=== PATIENT | female | born 1970 | race Caucasian/White ===

== ENCOUNTER 2016-11-20 17:42 | Emergency (ER) | payer BC, OTHER ==
[~2016-11-20] VITALS: Ht 177.8 cm; Wt 76.7 kg
[~2016-11-20 17:42] MED LIST: ACHD5005 PO; CETI10TA17; CETI1TAB2; CYCL10TA9 PO; IBUP-792; MULT-608; NITR100C3 PO
--- OUTSIDE RECORDS SUMMARY | 2016-11-20 17:48 | XMS REPORT | Continuity of Care Document ---
Author Author Interface Organization Interface Address Unknown Phone Unavailable Problems Problem Status Onset Date Classification Date Reported Comments Source Medications Medication Details Route Status Patient Instructions Ordering Provider Order Date Source Allergies, Adverse Reactions, Alerts Substance Category Reaction Severity Reaction type Status Date Reported Comments Source Immunizations Immunization Date Given Site Status Last Updated Comments Source Results Order Name Results Value Reference Range Date Interpretation Comments Source Vital Signs Vital Sign Value Date Comments Source Encounters Location Location Details Encounter Type Encounter Number Reason For Visit Attending Provider ADM Date DC Date Status Source [facility] REF [id number] Lab Testing Raffy Prado 05/22/2014 05/22/2014 Active [facility] and [facility] Procedures Procedure Code Date Perfomer Comments Source
--- NOTE | 2016-11-20 18:07 | ED Cough/URI ---
General Chief Complaint: Cough/Cold/Flu Symptoms Stated Complaint: FEVER/SORE THROAT Nursing Triage Note: PT ED W/ FAMILY FOR C/O COUGH, CONGESTION, FEVER, GENERALIZED ACHINESS ET EAR PAIN ONSET YESTERDAY, WORSE TODAY. REPORTS SHE WAS SEEN AT [facility] ET PUT ON ABX BUT DENIES IMPROVEMENT Source: patient Exam Limitations: no limitations History of Present Illness Time seen by provider: 18:06 Initial Comments To ER with a 48-hour history of nonproductive cough, fever up to 102, generalized body aches and ear pain. She was yesterday and put on Augmentin but she denies improvement Timing/Duration: other Severity/Quality: dry cough Associated Symptoms: cough Allergies and Home Medications Allergies Coded Allergies: codeine (Unverified Allergy, Mild, RASH, CONSTIPATION, 11/23/13) Home Medications Cyclobenzaprine Hcl 10 Mg Tablet #14 1 EACH PO Q8HR PRN PRN PRN SPASMS Prescribed by: LAZARO ZIMMERMAN on 11/23/13 1655 D-Methorphan Hb/P-Epd HCl/Bpm 118 Ml Syrup #120 5 ML PO Q6H PRN PRN COUGH Prescribed by: SACHIN HORTON on 11/20/16 1829 Hydrocodone Bit/Acetaminophen 1 Each Tablet #14 1 EACH PO Q4H PRN PRN PAIN Prescribed by: LAZARO ZIMMERMAN on 11/23/13 1655 Ibuprofen 400 Mg Tablet (Reported) Multivitamins 1 Tab Tablet (Reported) P-Ephed Hcl/Cetirizine Hcl 1 Tab Tab (Reported) Constitutional: see HPI chills fever malaise weakness EENTM: ear pain see HPI Respiratory: no symptoms reported Cardiovascular: no symptoms reported Genitourinary: no symptoms reported Musculoskeletal: no symptoms reported Skin: no symptoms reported Psychiatric/Neurological: No Symptoms Reported Past Lqymvjy-Gmtvff-Zmtkil Hx Patient Social History Alcohol Use: Occasionally Uses Recreational Drug Use: No Smoking Status: Never a Smoker Recent Foreign Travel: No Contact w/Someone Who Travel: No Recent Infectious Disease Expo: No Recent Hopitalizations: No Physical Abuse Screen: No Sexual Abuse: No Immunizations Up To Date Tetanus Booster (TDap): Less than 5yrs Date of Influenza Vaccine: Aug 27, 2013 Surgeries HX Surgeries: No Respiratory Hx Respiratory Disorders: No Cardiovascular Hx Cardiac Disorders: Yes Neurological Hx Neurological Disorders: No Reproductive System Hx Reproductive Disorders: No Sexually Transmitted Disease: No HIV/AIDS: No Female Reproductive Disorders: Denies Genitourinary Hx Genitourinary Disorders: No Gastrointestinal Hx Gastrointestinal Disorders: No Musculoskeletal Hx Musculoskeletal Disorders: No Endocrine Hx Endocrine Disorders: No HEENT HX ENT Disorders: No Loss of Vision: Denies Hearing Impairment: Denies Cancer Hx Cancer: No Psychosocial Hx Psychiatric Problems: No Integumentary HX Skin/Integumentary Disorder: No Blood Transfusions Hx Blood Disorders: No Adverse Reaction to a Blood Tr: No Family Medical History Significant Family History: No Pertinent Family Hx Physical Exam Vital Signs Vital Sign - Last 12Hours Capillary Refill : Less Than 3 Seconds General Appearance: WD/WN no apparent distress Eyes: Bilateral Eye EOMI, Bilateral Eye Normal Inspection, Bilateral Eye PERRL HEENT: PERRL/EOMI normal ENT inspection TMs normal pharynx normal Neck: non-tender full range of motion Respiratory: lungs clear normal breath sounds no respiratory distress no accessory muscle use Gastrointestinal: normal bowel sounds non tender soft Extremities: normal range of motion non-tender Neurologic/Psychiatric: alert normal mood/affect oriented x 3 Skin: normal color warm/dry Progress/Results/Core Measures Results/Orders Lab Results Laboratory Tests Test 11/20/16 18:06 Range/Units Basophils # (Auto) 0.0 0.0-0.1 10^3/uL Basophils (%) (Auto) 0 0-10 % Eosinophils # (Auto) 0.1 0.0-0.3 10^3/uL Eosinophils (%) (Auto) 2 0-10 % Hematocrit 35 35-52 % Hemoglobin 11.3 L 11.5-16.0 G/DL Lymphocytes # (Auto) 0.5 L 1.0-4.0 X 10^3 Lymphocytes (%) (Auto) 9 L 12-44 % Mean Corpuscular Hemoglobin 29 25-34 PG Mean Corpuscular Hemoglobin Concent 33 32-36 G/DL Mean Corpuscular Volume 89 80-99 FL Mean Platelet Volume 9.6 7.4-10.4 FL Monocytes # (Auto) 0.9 0.0-1.0 X 10^3 Monocytes (%) (Auto) 15 H 0-12 % Monoscreen NEGATIVE NEGATIVE Neutrophils # (Auto) 4.3 1.8-7.8 X 10^3 Neutrophils (%) (Auto) 74 42-75 % Platelet Count 307 130-400 10^3/uL Red Blood Count 3.90 L 4.35-5.85 10^6/uL Red Cell Distribution Width 13.3 10.0-14.5 % White Blood Count 5.9 4.3-11.0 10^3/uL My Orders Orders-SACHIN HORTON APRN Cbc With Automated Diff (11/20/16 17:53) Monotest (11/20/16 17:53) Influenza A And B Antigens (11/20/16 18:06) Chest Pa/Lat (2 View) (11/20/16 18:06) Vital Signs/I&O Vital Sign - Last 12Hours 11/20/16 11/20/16 17:47 17:47 Temp 102.8 Pulse 106 Resp 20 B/P 110/75 Pulse Ox 98 O2 Delivery Room Air Room Air Blood Pressure Mean: 87 Diagnostic Imaging Diagonstic Imaging: Xray Comments NAME: RAVEN ELKINS [facility] REC#: [id number] PT STATUS: REG ER : 1970 PHYSICIAN: SACHIN HORTON APRN ADMIT DATE: 11/20/16/ER Draft Date of Exam:11/20/16 CHEST PA/LAT (2 VIEW) INDICATION: Cough and fever. Comparison with 11/23/2013. FINDINGS: Examination of the chest in the PA and lateral projections fails to reveal evidence of active parenchymal pathology or pleural effusion. The cardiac silhouette is normal. IMPRESSION: 1. Negative chest. 2. No changes have occurred when compared with previous exam. Dictated on workstation # [id number] Dict: 11/20/161821 Trans: 11/20/161823 [facility] [id number] Interpreted by: EMMA ROWLEY MD Electronically signed by: Departure Impression Impression: Primary Impression: Influenza Disposition: 01 HOME, SELF-CARE Condition: Stable Departure-Patient Inst. Decision time for Depature: 18:28 Referrals: KAMALJIT GARRIDO MD (PCP/Family) Primary Care Physician Patient Instructions: Flu, Adult (DC) Add. Discharge Instructions: 1. Return to ER for any concerns 2. Late home and rest 3. Drink plenty of fluids 4. You may stop the antibiotics All discharge instructions reviewed with patient and/or family. Voiced understanding. Scripts Oseltamivir Phosphate (Tamiflu)75 Mg Cap75 Mg PO BID #10 CAP Prov:SACHIN HORTON APRN 11/20/16 D-Methorphan Hb/P-Epd HCl/Bpm (Bromfed Dm Cough Syrup)118 Ml Syrup5 Ml PO Q6H PRN COUGH #120 ML Prov:SACHIN HORTON APRN 11/20/16 SACHIN HORTON APRN Nov 20, 2016 18:07
[2016-11-20 18:15] LABS: BASOPHILS % (AUTO) 0 % (0-10); EOSINOPHILS # (AUTO) 0.1 10^3/uL (0.0-0.3); EOSINOPHILS % (AUTO) 2 % (0-10); LYMPHOCYTES # (AUTO) 0.5 X 10^3 (1.0-4.0); LYMPHOCYTES % (AUTO) 9 % (12-44); MEAN CORPUSCULAR HEMOGLOBIN 29 PG (25-34); MEAN CORPUSCULAR HGB CONC 33 G/DL (32-36); MEAN CORPUSCULAR VOLUME 89 FL (80-99); MEAN PLATELET VOLUME 9.6 FL (7.4-10.4); MONOCYTES # (AUTO) 0.9 X 10^3 (0.0-1.0); MONOCYTES % (AUTO) 15 % (0-12); NEUTROPHILS # (AUTO) 4.3 X 10^3 (1.8-7.8); NEUTROPHILS % (AUTO) 74 % (42-75); PLATELET COUNT 307 10^3/uL (130-400); RED CELL DISTRIBUTION WIDTH 13.3 % (10.0-14.5); WHITE BLOOD COUNT 5.9 10^3/uL (4.3-11.0)
--- NOTE | 2016-11-20 18:24 | Diagnostic Imaging Report ---
INDICATION: Cough and fever. Comparison with 11/23/2013. FINDINGS: Examination of the chest in the PA and lateral projections fails to reveal evidence of active parenchymal pathology or pleural effusion. The cardiac silhouette is normal. IMPRESSION: 1. Negative chest. 2. No changes have occurred when compared with previous exam. Dictated by: Dictated on workstation # [id number]
[2016-11-20] MEDS ORDERED: D-ME118S33 PO (18:29)
[2016-11-20] MEDS ORDERED: OSLT75C PO (18:31)
[2016-11-20 18:41] VITALS: BP 0/0
[2016-11-20] MEDS ORDERED: ACETAMINOPHEN 500 MG TAB (TYLENOL) PO ONE (18:45)
== END 2016-11-20 18:42 | disposition home or self-care (01) ==
LOC: EDUNIT# 17:42 → ER 17:44
DX: J11.1 Influenza due to unidentified influenza virus with other respiratory manifestations (principal); R50.9 Fever, unspecified
CPT/HCPCS: 36415; 71020; 85025; 86308; 87804

== ENCOUNTER → 2016-12-10 | Outpatient (CLI) | payer BC ==
[~2016-12-10] MED LIST changes: +D-ME118S33 PO; +OSLT75C PO
--- NOTE | 2016-12-10 18:21 | Diagnostic Imaging Report ---
EXAMINATION: Right breast ultrasound. INDICATION: Followup cysts with cyst aspiration, if indicated. COMPARISON: 10/21/16. FINDINGS: There is a simple cyst in the right breast at 9 o'clock zone, 4 cm from the nipple, with no solid component seen. When compared to scanned outside study from 10/21/2016, the cyst appears significantly smaller with resolution of previously seen internal debris or septation. It measures 0.9 x 0.7 x 0.7 cm. At 12 o'clock zone, 4 cm from the nipple, there is a simple cyst, measuring 1.1 x 0.8 x 1.0 cm. At 3 o'clock zone, tiny cysts are seen with no underlying lesion seen. In the retroareolar area, minimal duct ectasis is noted. IMPRESSION: Multiple simple cysts and duct ectasia in the retroareolar region are noted. ACR BI-RADS Category 2: Benign findings. Result letter will be mailed to the patient. Note: At least 10% of breast cancer is not imaged by mammography. Dictated by: Dictated on workstation # [id number]
== END ==
LOC: RAD 12:24
PROVIDERS: ATTEND Surgery
DX: N60.11 Diffuse cystic mastopathy of right breast (principal); N60.41 Mammary duct ectasia of right breast

== ENCOUNTER → 2017-07-23 | Outpatient (CLI) | payer BC | LOC: LAB 11:31 | PROVIDERS: ATTEND Nurse Practitioner | DX: J30.9 Allergic rhinitis, unspecified (principal) | CPT/HCPCS: 36415; 86003 ==

== ENCOUNTER → 2018-04-27 | Outpatient (CLI) | payer BC ==
--- NOTE | 2018-04-27 17:32 | Diagnostic Imaging Report ---
INDICATION: Pain. COMPARISON: 10/04/2015. FINDINGS: Three views of the left hand are obtained. No acute fracture, malalignment, or osseous destructive process is seen. IMPRESSION: Negative left hand. Dictated by: Dictated on workstation # [id number]
== END ==
LOC: RAD 12:01
PROVIDERS: ATTEND Family Medicine
DX: M79.642 Pain in left hand (principal)
CPT/HCPCS: 73130

== ENCOUNTER 2019-03-26 17:23 | Emergency (ER) | payer BC ==
[~2019-03-26] VITALS: Ht 177.8 cm; Wt 81.6 kg
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
--- OUTSIDE RECORDS SUMMARY | 2019-03-26 17:28 | XMS REPORT | Encounter Summary ---
Author Author [facility] Organization [facility] Address Unknown Phone Unavailable Care Team Providers Care Office Cleaner Name Role Phone Shivam Hobbs MD Unavailable Ana Salas Unavailable Griselda Cooley MD PCP Reason for Visit * Reason Comments Memory Loss Follow up Encounter Details Care Team Description Date Type Department Ana Salas APRN-NP [address] [email or web address] [address] [address] Memory changes 03/23/2019 Office Visit The [facility] [address] [address] Social History Date Tobacco Use Types Packs/Day Years Used Never Smoker Smokeless Tobacco: Never Used Sex Assigned at Date Recorded Not on file Industry Job Start Date Occupation Not on file Not on file Not on file Travel End Travel History Travel Start No recent travel history available. documented as of this encounter Last Filed Vital Signs Time Taken Vital Sign Reading 03/23/2019 1:22 PM CDT Blood Pressure 120/68 03/23/2019 1:22 PM CDT Pulse 66 - Temperature - - Respiratory Rate - - Oxygen Saturation - - Inhaled Oxygen - Concentration 03/23/2019 1:22 PM CDT Weight 82.6 kg (182 lb) - Height - 03/23/2019 10:25 AM CDT Body Mass Index 26.11 documented in this encounter Functional Status Date of Assessment Functional Status Response 03/23/2019 Does the patient have a hearing impairment: No 03/23/2019 Does the patient have a visual impairment: Yes 12/22/2017 Does the patient have impaired ambulation: No 12/22/2017 Does the patient have an activity of daily living No (ADL) impairment: 12/22/2017 Does the patient have an instrumental activity of No daily living (IADL) impairment: Date of Assessment Cognitive Status Response 12/22/2017 Does the patient have a cognitive impairment: No documented as of this encounter Patient Instructions * Patient Instructions* Ana Salas APRN-NP - 03/23/2019 2:00 PM CDT Stay active and engaged mentally, physically and socially. Follow up or sooner as needed. documented in this encounter Progress Notes * Ana Salas APRN-NP - 03/23/2019 2:00 PM CDT ShDate of Service: 03/23/2019 Subjective: Lennie Cool is a 48 y.o. female. The history is given by her father. History of TBI about 5 years ago. History of Present Illness Since her visit last January 2018, her memory has been doing very well. The only t nohelia she does still struggle with are word finding and some daytime fatigue. She speaks several languages and often it takes a little longer to pull up the Engl caitlny version of a word. She was able to to go off the Zoloft and feels that she is doing well with her m ood. 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 She covers several [employer] es for her job. If she gets tired she pulls over and takes a little "cat nap." She is very active outside of work with hobbies and takes care of her cats and d ogs. Very involved in [employer] and [employer] vocational counselor. 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 If sh e gets tired she pulls over and takes a little "cat nap." She is in a Research program here at for her allergies, she had an appointmen t today and her lung function was improved. She follows a more restrictive diet, tries to stay away from Gluten, Dairy and H igh Fructose corn syrup. She manages her home, finances. She has a good relationship with her son who goes to [employer]. Review of Systems Constitutional: Positive for fatigue. HENT: Positive for sinus pressure. Eyes: Positive for visual disturbance (being worked up for Glaucoma). Respiratory: Negative. Cardiovascular: Negative. Gastrointestinal: Negative. Genitourinary: Negative. Musculoskeletal: Negative. Neurological: Positive for speech difficulty (some word finding difficulty at ti mes. ). Psychiatric/Behavioral: Negative for confusion, decreased concentration, dysphor ic mood, hallucinations and sleep disturbance. She does not report an awakening headache or dry mouth, just some daytime fatigu e. Objective: ascorbic acid (VITAMIN-C) 500 mg tablet Take 500 mg by mouth daily. azelastine-fluticasone (DYMISTA) 137-50 mcg/spray nasal spray Apply one spra y to each nostril as directed twice daily. budesonide/formoterol (SYMBICORT HFA) 160/4.5 mcg inhalation Inhale two puff s by mouth into the lungs twice daily. cetirizine (ZYRTEC) 10 mg tablet Take 10 mg by mouth daily. electrolyte GUT PEG (NULYTELY, COLYTE, GAVILYTE-N) 420 gram oral solution Ta ke as directed by physicians office. EPINEPHrine (EPIPEN 2-ARCHIE) 1 mg/mL injection pen (2-Pack) Inject 0.3 mg (1 P en) into thigh if needed for anaphylactic reaction. May repeat in 5-15 minutes i f needed. ibuprofen (MOTRIN) 200 mg tablet Take 400 mg by mouth every 6 hours as neede d for Pain. MULTIVITAMIN PO Take 1 Tab by mouth daily. oxymetazoline (AFRIN SINUS (OXYMETAZOLINE)) 0.05 % nasal spray Apply two spr ays to each nostril as directed twice daily for 3 days. Vitals: 03/23/19 1322 BP: 120/68 Pulse: 66 Weight: 82.6 kg (182 lb) Body mass index is 26.11 kg/m. Physical Exam I have personally reviewed the medication list and am making recommendations as listed in the plan below. Lennie manages medication at home for Lennie Cool. The following medications have been identified as potential high risk medication s: none Neurological and Physical Examination: Mental status: She scored 10/10 on MMSE for orientation. Alert, oriented to na me, pleasant, cooperative, well-dressed and groomed. She is in no apparent distr ess. She names and repeats well. She has good insight into her cognitive deficit s. Missed 1/3 on delayed recall. Speech is fluent. Cranial nerves: Pupils are equal and reactive to light. Extraocular movements are full. Tongue and palate are midline. All other cranial nerves intact. Motor: 5/5 strength in the upper and lower extremities with no cogwheel rigidit y. Reflexes: Reflexes are 2 in the arms and at the knees. Coordination: No dysmetria on [id number]-yk-behw testing. Gait: Normal casual gait with normal arm swing, stride length and turns. Neurobehavioral Testing: MMSE: 29/30 LM I : 10 LM II: 11 Clock drawin Verbal Fluency: 20 Trailmaking A: 26 seconds 0 errors Trailmaking B: 54seconds 0 errors Logical Memory Score II: 11 Trailmaking B Errors: 0Testing scores from 02/04/18: Neurobehavioral Evaluation: Mini-Mental Status Examination: 29/30. LM I : 15 LM II: 10 Clock drawin Verbal Fluency: 34 Trailmaking A: 30 seconds 0 errors Trailmaking B: 51 seconds 0 errors Trailmaking B Time (secs): 54 PHQ Depression Scale: PHQ-2 Score: 0 (03/23/2019 1:24 PM) . See below for any recommendations. Dementia Stage: none Assessment and Plan: Problem Memory Changes 47 year old with history or previous TBI here for follow up. Testing remains st able. Some occasional mood changes with stress of job and life. Will increase th e Zoloft to 100 mg/day. Encouraged to stay active and engaged. Discussed mindfu l meditation And stress reduction. Will follow up in 1 year or sooner if needed. Memory changes Since her visit last year she feels she is doing well. Her father reports no con cerns. 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 She mentions some occasional wor d finding difficulty, score down today. She thinks it could also be because she did not always learn words in Thai, she speaks several languages. I recommend ed if she has some concerns we could consider a Speech Therapy evaluation to see if they may have some recommendations to make. She also has some daytime fatigue at times. She does not feel it is sleep relate d. She can be really Busy at work and sometimes just needs to take a brain jayant k. I recommended a home sleep study if it continues to make sure that JONH is not co ntributing. Mood is good, she has been off the Zoloft for some time now and feels she is doi ng well without it. Plan; Discontinue the Zoloft. She has already done this. Stay active and engaged mentally, physically and socially. If the daytime sleepiness continues we can consider a home sleep study. Follow up in 1 year or sooner as needed on a day when Dr. García from neuropsycho logy is in the clinic to do a bit ector cognitive testing. Total Visit time: 40 minutes Counseling time: 35 minutes Regarding: Care planning, medications, test results and disease progression documented in this encounter Plan of Treatment Not on filedocumented as of this encounter Visit Diagnoses Diagnosis Memory changes Memory loss * Assessment & Plan Note - Ana Salas APRN-NP - 03/23/2019 2:28 PM CDT Associated Problem(s): Memory changes Since her visit last year she feels she is doing well. Her father reports no con cerns. 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 She mentions some occasional wor d finding difficulty, score down today. She thinks it could also be because she did not always learn words in Thai, she speaks several languages. I recommend ed if she has some concerns we could consider a Speech Therapy evaluation to see if they may have some recommendations to make. She also has some daytime fatigue at times. She does not feel it is sleep relate d. She can be really Busy at work and sometimes just needs to take a brain jayant k. I recommended a home sleep study if it continues to make sure that JONH is not co ntributing. Mood is good, she has been off the Zoloft for some time now and feels she is doi ng well without it. Plan; Discontinue the Zoloft. She has already done this. Stay active and engaged mentally, physically and socially. If the daytime sleepiness continues we can consider a home sleep study. Follow up in 1 year or sooner as needed on a day when Dr. García from neuropsycho logy is in the clinic to do a bit ector cognitive testing. documented in this encounter
--- OUTSIDE RECORDS SUMMARY | 2019-03-26 17:29 | XMS REPORT | Encounter Summary ---
Author Author [facility] Organization [facility] Address Unknown Phone Unavailable Care Team Providers Care Structural Fitter Name Role Phone Shivam Hobbs MD Unavailable Ana Salas Unavailable Griselda Cooley MD PCP Reason for Visit * Reason Comments Immunotherapy Refill Encounter Details Care Team Description Date Type Department Es Boyce DO [address] [facility] [address] [place] [address] Immunotherapy (Refill) 03/01/2019 Telephone The [facility] [address] [place] [address] Social History Date Tobacco Use Types Packs/Day Years Used Never Smoker Smokeless Tobacco: Never Used Sex Assigned at Date Recorded Not on file Industry Job Start Date Occupation Not on file Not on file Not on file Travel End Travel History Travel Start No recent travel history available. documented as of this encounter Functional Status Date of Assessment Functional Status Response 12/22/2017 Does the patient have a hearing impairment: No 12/22/2017 Does the patient have a visual impairment: Yes 12/22/2017 Does the patient have impaired ambulation: No 12/22/2017 Does the patient have an activity of daily living No (ADL) impairment: 12/22/2017 Does the patient have an instrumental activity of No daily living (IADL) impairment: Date of Assessment Cognitive Status Response 12/22/2017 Does the patient have a cognitive impairment: No documented as of this encounter Miscellaneous Notes * Telephone Encounter - Harriet Lopez LPN - 03/01/2019 9:54 AM CDT Refilled/Mixed vials 1:1. Shot A Exp: 08/20/19 Shot B Exp: 03/01/20 Shot C Exp: 03/01/20 documented in this encounter Plan of Treatment Not on filedocumented as of this encounter Visit Diagnoses Not on filedocumented in this encounter
--- OUTSIDE RECORDS SUMMARY | 2019-03-26 17:29 | XMS REPORT ---
Author Author MELISSA DIMAS [facility] Address [address] [place] [address] Care Team Providers Care Director Peoplesoft Name Role Phone MELISSA DIMAS Unavailable PROBLEMS Unknown Problems ALLERGIES No Information ENCOUNTERS Encounter Location Date Diagnosis [place] [address], [place] [address] Aug, Encounter for immunization Z23 [place] [address] [place] [id number] [place] [phone] Sep, Encounter for immunization Z23 [place] [id number] [place] [phone] Jan, [facility] [address], [place] [address] Jan, [place] [address] [place] [id number] [place] [phone] Nov, [place] [address], [place] [address] Nov, IMMUNIZATIONS Vaccine Route Administration Date Status FLUARIX QUAD (3 AND UP) 2016 IM Intramuscular Aug 19, 2017 Administered SOCIAL HISTORY Never Assessed REASON FOR VISIT Flu shot PLAN OF CARE VITAL SIGNS MEDICATIONS Unknown Medications RESULTS No Results PROCEDURES Procedure Date Ordered Result Body Site FLUARIX QUAD (3 & UP)-GSK-2014Aug 19, 2017 SINGLE IMMUNIZATION ADMIN Aug 19, 2017 INSTRUCTIONS MEDICATIONS ADMINISTERED No Known Medications
--- OUTSIDE RECORDS SUMMARY | 2019-03-26 17:29 | XMS REPORT | Continuity of Care Document ---
Author Organization Unknown Address Unknown Allergies Active Description Code Type Severity Reaction Onset Reported/Identified Relationship to Patient Clinical Status Yes clifton [id number] Drug Allergy Mild RASH, CONSTIPAT 11/23/2013 Medications There is no data. 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 Results Test Result Range Complete blood count (CBC) with automated white blood cell (WBC) differential - 11/20/16 18:06 Blood leukocytes automated count (number/volume) 5.9 10*3/uL 4.3-11.0 Blood erythrocytes automated count (number/volume) 3.90 10*6/uL 4.35-5.85 Venous blood hemoglobin measurement (mass/volume) 11.3 g/dL 11.5-16.0 Blood hematocrit (volume fraction) 35 % 35-52 Automated erythrocyte mean corpuscular volume 89 [foz_us] 80-99 Automated erythrocyte mean corpuscular hemoglobin (mass per erythrocyte) 29 pg 25-34 Automated erythrocyte mean corpuscular hemoglobin concentration measurement (mass/volume) 33 g/dL 32-36 Automated erythrocyte distribution width ratio 13.3 % 10.0- 14.5 Automated blood platelet count (count/volume) 307 10*3/uL 130-400 Automated blood platelet mean volume measurement 9.6 [foz_us] 7.4-10.4 Automated blood neutrophils/100 leukocytes 74 % 42-75 Automated blood lymphocytes/100 leukocytes 9 % 12-44 Blood monocytes/100 leukocytes 15 % 0-12 Automated blood eosinophils/100 leukocytes 2 % 0-10 Automated blood basophils/100 leukocytes 0 % 0-10 Blood neutrophils automated count (number/volume) 4.3 10*3 1.8-7.8 Blood lymphocytes automated count (number/volume) 0.5 10*3 1.0-4.0 Blood monocytes automated count (number/volume) 0.9 10*3 0.0- 1.0 Automated eosinophil count 0.1 10*3/uL 0.0-0.3 Automated blood basophil count (count/volume) 0.0 10*3/uL 0.0-0.1 Serum heterophile antibody titer - 11/20/16 18:06 Serum heterophile antibody titer NEGATIVE NEGATIVE Influenza virus A and B antigen detection - 11/20/16 18:06 CALL POSITIVES (F1 HELP) LORNE FUENTES FLU RESULT POSITIVE FOR INFLUENZA A ANTIGEN, NEG FOR B ANTIGEN, BY DIANA NRSamara Encounters ACCT No. Visit Date/Time Discharge Status Pt. Type Provider Facility Loc./Unit Complaint [id number] 08/19/2017 10:45:00 08/19/2017 23:59:59 CLS Outpatient CHERRI RICHARDS [id number] 06/03/2015 02:28:49 ACT Document Registration [id number] 11/18/2016 09:23:00 11/18/2016 23:59:00 DIS Outpatient Qasim Joyce [id number] 10/21/2016 11:40:00 10/21/2016 23:59:00 DIS Outpatient Griselda Garrido [id number] 04/27/2018 12:01:00 04/27/2018 23:59:59 CLS Outpatient GRISELDA GARRIDO MD [facility] RAD LEFT HAND PAIN [id number] 07/23/2017 11:31:00 07/23/2017 23:59:59 CLS Outpatient JULIANO DALTON APRN [facility] LAB ALLERGIC RHINITIS [id number] 12/10/2016 12:24:00 12/10/2016 23:59:59 CLS Outpatient QASIM JOYCE DO [facility] RAD RIGHT BREAST CYST [id number] 11/20/2016 17:44:00 11/20/2016 18:42:00 DIS Emergency SACHIN HORTON PRESS READER [facility] ER FEVER/SORE THROAT [id number] 10/04/2015 15:36:00 10/04/2015 23:59:59 CLS Outpatient JAYA CARDENAS DO [facility] QUICK [id number] 06/02/2015 15:09:00 06/02/2015 23:59:59 CLS Outpatient SRINATH ESCOTO [facility] QUICK [id number] 04/11/2014 10:43:00 04/11/2014 23:59:59 CLS Outpatient [id number] 11/29/2013 11:25:00 11/29/2013 13:37:00 DIS Emergency [id number] 11/23/2013 13:10:00 11/23/2013 17:50:00 DIS Emergency [id number] 04/07/2013 07:12:00 04/07/2013 23:59:59 CLS Outpatient [id number] 03/23/2013 09:46:00 03/23/2013 23:59:59 CLS Outpatient [id number] 03/13/2013 07:30:00 03/13/2013 23:59:59 CLS Outpatient [id number] 03/26/2019 17:25:00 ACT Emergency SARIKA GRAY, MERRICK Christensen [facility] ER HEADACHE
--- OUTSIDE RECORDS SUMMARY | 2019-03-26 17:29 | XMS REPORT ---
Author MELISSA Karimi [facility] e[employer] Address Unknown Phone Unavailable Care Team Providers Care Agitator Operator Name Role Phone MELISSA DIMAS CP Unavailable Allergies No Known Allergies Problems Problem Type Condition Code Onset Dates Condition Status Assessment Encounter for immunization Z23 Active Medications No Known Medications Procedures Procedure Coding System Code Date SINGLE IMMUNIZATION ADMIN CPT-4 20746 Sep 17, 2016 FLUARIX QUAD P-FREE 3 AND UP .50 2015 CPT-4 97985 Sep 17, 2016 Results No Known Results Immunizations Vaccine Administration Date FLUARIX QUAD P-FREE 3 AND UP .50 2015Sep 17, 2016 Summary Purpose eClinicalWorks Submission
--- OUTSIDE RECORDS SUMMARY | 2019-03-26 17:29 | XMS REPORT | Encounter Summary ---
Author Author [facility] Organization [facility] Address Unknown Phone Unavailable Care Team Providers Care Industrial Gas Servicer Supervisor Name Role Phone Shivam Hobbs MD Unavailable Ana Salas Unavailable Griselda Cooley MD PCP Encounter Details Care Team Description Date Type Department Es Boyce DO [address] [facility] Lvl [address] [place] [address] Rhinoconjunctivitis 03/01/2019 Orders Only [facility] [address] [place] [address] Social History Date Tobacco Use [...] impairment: No documented as of this encounter Progress Notes * Harriet Lopez LPN - 03/01/2019 12:37 PM CDT Billed 48 doses red vial 1:1 AIT refill under "Orders Only" Encounter on 03/01/20 19. documented in this encounter Plan of Treatment Not on filedocumented as of this encounter Visit Diagnoses Diagnosis Rhinoconjunctivitis Chronic rhinitis documented in this encounter
--- OUTSIDE RECORDS SUMMARY | 2019-03-26 17:29 | XMS REPORT | Encounter Summary ---
Author Author [facility] Organization [facility] Address Unknown Phone Unavailable Care Team Providers Care Ammonia Operator Name Role Phone Shivam Hobbs MD Unavailable Ana Salas Unavailable Griselda Cooley MD PCP Reason for Visit * Reason Comments Immunotherapy Vial Shipping Encounter Details Care Team Description Date Type Department Es Boyce DO [address] [facility] Lvl [address] [place] [address] Immunotherapy (Vial Shipping) 03/01/2019 Telephone [facility] [address] [place] [address] Social History Date Tobacco Use [...] Encounter - Harriet Lopez LPN - 03/01/2019 10:18 AM CDT Vials x3 1:1 placed in [employer] envelope along with Allergy Protocol and Allergy Ad ministration Record. Vials sent out 03/01/2019. [employer] Trackin documented in this encounter Plan of Treatment Not on filedocumented as of this encounter Visit Diagnoses Not on filedocumented in this encounter
--- OUTSIDE RECORDS SUMMARY | 2019-03-26 17:29 | XMS REPORT | Encounter Summary ---
Author Author [facility] Organization [facility] Address Unknown Phone Unavailable Care Team Providers Care Correction Lieutenant Name Role Phone Shivam Hobbs MD Unavailable Ana Salas Unavailable Griselda Cooley MD PCP Reason for Visit * Reason Comments Other allergy shot documentation Encounter Details Care Team Description Date Type Department Junior Perdomo Other (allergy shot documentation ) 02/14/2019 Telephone The [address] [address] Social History Date Tobacco Use Types [...] Encounter - Harriet Lopez LPN - 03/01/2019 10:40 AM CDT Vials have been made today 03/01/2019 and will be shipped today as well. * Telephone Encounter - Harriet Lopez LPN - 02/28/2019 2:48 PM CDT I have not received any documentation on this patient regarding Allergy refill r equest. * Telephone Encounter - Gian Valencia LPN - 02/28/2019 1:38 PM CDT Received a voicemail from Clara with Dr. Cooley's office. Clara stated that she sent in a request for new red vials for pt about 2 weeks ago and have not re ceived vials yet. Routing to JASON Lopez to follow up on this due to her previous documentation on 02/14/19 recievng the pt's allergy documentation. Routing to PAUL Silva to see if she was ever notified of allergy shot document ation coming in and to follow up on who is mailing out new vials. * Telephone Encounter - Gregoria Cabrera RN - 02/14/2019 3:57 PM CDT Received allergy shot documentation Document added to image now to be scanned into EMR documented in this encounter Plan of Treatment Not on filedocumented as of this encounter Visit Diagnoses Not on filedocumented in this encounter
--- OUTSIDE RECORDS SUMMARY | 2019-03-26 17:29 | XMS REPORT | Encounter Summary ---
Author Author [facility] Organization [facility] Address Unknown Phone Unavailable Care Team Providers Care Study Lead Name Role Phone Shivam Hobbs MD Unavailable Ana Salas Unavailable Griselda Cooley MD PCP Reason for Visit * Reason Comments Asthma Encounter Details Care Team Description Date Type Department Rohan-Junior Deleon History of asthma (Primary Dx); Sinus pressure; Rhinoconjunctivitis; Moderate persistent asthma without complication 03/23/2019 Office Visit [facility] [address] [place] [address] Social History Date Tobacco Use [...] Signs Time Taken Vital Sign Reading 03/23/2019 10:25 AM CDT Blood Pressure 113/62 03/23/2019 10:25 AM CDT Pulse 61 03/23/2019 10:25 AM CDT Temperature 36.9 C (98.4 F) 03/23/2019 10:25 AM CDT Respiratory Rate 16 03/23/2019 10:25 AM CDT Oxygen Saturation 99% - Inhaled Oxygen - Concentration 03/23/2019 10:25 AM CDT Weight 81.8 kg (180 lb 6.4 oz) 03/23/2019 10:25 AM CDT Height 177.8 cm (5' 10") 03/23/2019 10:25 AM CDT Body Mass Index 25.88 documented in this encounter Functional Status Date [...] this encounter Patient Instructions * Patient Instructions* Junior Perdomo MD - 03/23/2019 10:00 AM CDT Your Allergy shots schedule now that you are on red vial maintenance dose of 0.6 : - We recommend getting maintenance dose of 0.6ml weekly X 4 doses - then every 2 weeks x 4 doses - then every 3 weeks x 4 doses - then every 4 weeks This is the plan as long as you are tolerating your shots. Saline rinses daily then wait 30 minutes before using nasal spray. Start Afrin 2 sprays each nostril BID x 3days and Dymista 1 spray each nostril B ID. You may call us with any questions or concerns. Our nurse can be reached at [phone] during open business hours. If you need to reach the Telephone Order Dispatcher after bu siness hours, you may call the hospital ethylbenzene converter operator at [phone] and ask to randa judd with the fellow on-call. If sinus pressure increases please call. Start Symbicort twice daily for 2 weeks then wean down to once daily. documented in this encounter Progress Notes * Junior Perdomo MD - 03/23/2019 10:00 AM CDT Date of Service: 03/23/2019 Subjective: Lennie Cool is a 48 y.o. female with history of traumatic brain injury , rhinoconjunctivitison AIT, and mod- persistent asthma without complications hereforfollow up. Last seen 11/24/2018. History of Present IllnessInterim history: Patient was doing very well since last visit until last couple of weeks, she dev eloped congestion, and PND with chest tightness. She noticed a sinus pressure wi th headache starting today. She also noted some green discharge in the morning. She has had a history of at most 3 sinus infections per year. All those diagn oses were made clinically but never had any CT of her sinuses completed. Otherw ise, she is doing well on Zyrtec 10mg QHS and Dymista 1 spray each nostril BID. Rhinoconjunctivitis: She usually has itchy eyes, and itchy skin. Moreover, she has runny stuffy and itchy nose. She feels tightness of chest and breathing difficulty. The symptom s started at age 13. There are usually oriole long and worse in the fall. Her usual triggers are outdoor activities. She has had aeroallergens skin testing a t Dr. Bañuelos's office (ENT, [place], [place]) but unable to interpret as no positiv e and negative controls listed. Per their notes she was positive to tree, grass, weed, mold, dust, cat and dog. She was started on allergy immunotherapy in Aug, where she was getting 2 shots every week. She discontinued them in 2016 due to having reactions including tightness in chest which responds to albuterol and redness around the site that subsides later. She also received IT shots for 3 years about 13 years ago which helped her a lot . Aeroallergen skin puncturetesting done on 05/12/2018 revealed she is sensitized to trees, wee ds, grass, dust mite P and cat.Intradermal 05/2018 were positive to mold (alter naria and helminthosporium). She is doing well on Zyrtec 10mg QHS and Dymista 1 spray each nostril BID. She is on red vial 1:1 ( 3 shots) once a week. On 02/14/2019, she received her first maintenance dose of 0.6. She has been tolerating her allergy shots well. She puts ice on the sites for 30mins afterwards which helps. Rhinitis Control Assessment Test #1. During the past week, how often did you have nasal congestion?: 3 (03/23/2019 10:30 AM) #2. During the past week, how often did you sneeze?: 4 (03/23/2019 10:30 AM) #3. During the past week, how often did you have watery eyes?: 4 (03/23/2019 10:3 0 AM) #4. During the past week, to what extent did your nasal or other allergy symptom s interfere with your sleep?: 5 (03/23/2019 10:30 AM) #5. During the past week, how well were your nasal or other allergy symptoms con trolled?: 4 (03/23/2019 10:30 AM) #6. During the past week, how often did you avoid any activities (for example, v isiting a house with a dog or cat, or gardening) because of your nasal or other allergy symptoms?: 5 (03/23/2019 10:30 AM) RCAT Total Score: 25 (03/23/2019 10:30 AM) Moderate persistent asthma: Has been doing well since last visit. Patient denied any ER or urgent care visi ts for asthma. Moreover, she denied using prednisone for asthma since last visi t. She is currently supposed to be on Symbicort 160/4.5 mcg 2 puffs BID with sp acer. However, she has been taking Symbicort 160 2 puffs once daily as she forg ets to take the morning dose. She has not had to use her albuterol since her [facility] visit except for once in the last month. Her usual triggers include Asthma Control Test #1. In the past 4 weeks, how much of the time did your asthma keep you from gett ing as much done at work, school or at home?: 5 (03/23/2019 10:29 AM) #2. During the past 4 weeks, how often have you had shortness of breath?: 4 (03/08 10:29 AM) #3. During the past 4 weeks, how often did your asthma symptoms (wheezing, cough ing, shortness of breath, chest tightness or pain) wake you up at night or earli er than usual in the morning?: 5 (03/23/2019 10:29 AM) #4. During the past 4 weeks, how often have you used your rescue inhaler or nebu lizer medication (such as albuterol)?: 4 (03/23/2019 10:29 AM) #5. How would you rate your asthma control during the past 4 weeks?: 4 ( 9 10:29 AM) Total Score: 22 (03/23/2019 10:29 AM) Review of Systems HENT: Positive for congestion, postnasal drip and sinus pressure. Eyes: Positive for photophobia and discharge. Endocrine: Positive for cold intolerance. Musculoskeletal: Positive for arthralgias. Allergic/Immunologic: Positive for environmental allergies. All other systems reviewed and are negative. Objective: ascorbic acid (VITAMIN-C) 500 mg tablet [...] twice daily for 3 days. Vitals: 03/23/19 1025 BP: 113/62 Pulse: 61 Resp: 16 Temp: 36.9 C (98.4 F) TempSrc: Oral SpO2: 99% Weight: 81.8 kg (180 lb 6.4 oz) Height: 177.8 cm (70") Body mass index is 25.88 kg/m. Physical Exam Constitutional: She is oriented to person, place, and time. She appears well-dev eloped and well-nourished. HENT: Head: Normocephalic. Right Ear: External ear normal. Left Ear: External ear normal. Mouth/Throat: Oropharynx is clear and moist. Mild swollen turbinates bilaterally. Eyes: Pupils are equal, round, and reactive to light. Conjunctivae and EOM are n ormal. Neck: Normal range of motion. Cardiovascular: Normal rate, regular rhythm and normal heart sounds. Pulmonary/Chest: Effort normal and breath sounds normal. She has no wheezes. She has no rales. Abdominal: Soft. Bowel sounds are normal. Musculoskeletal: Normal range of motion. Neurological: She is alert and oriented to person, place, and time. Skin: Skin is warm. Negative dermatographism. Psychiatric: She has a normal mood and affect. Assessment and Plan: Problem Sinus Pressure She noticed a sinus pressure with headache starting today. She also noted some green discharge in the morning. She has had a history of at most 3 sinus infec tions per year. All those diagnoses were made clinically but never had any CT o f her sinuses completed. Plan: -We will observe for now as too early for imaging evaluation or starting antibio tics. -Patient instructed to call us if symptoms worsen or she develops fever in the n ext few days. -May consider CT scan of the sinuses if that occurs. -Start Afrin x3 days. -Daily saline rinses. Rhinoconjunctivitis She usually has itchy eyes, and itchy skin. Moreover, she has runny stuffy and itchy nose. She feels tightness of chest and breathing difficulty. The sympto ms started at age 13. There are usually oriole long and worse in the fall. Her usual triggers are outdoor activities. She has had aeroallergens skin testing at Dr. Bañuelos's office (ENT, [place], [place]) but unable to interpret as no positi ve and negative controls listed. Per their notes she was positive to tree, grass , weed, mold, dust, cat and dog. She was started on allergy immunotherapy in [place] 2016, where she was getting 2 shots every week. She discontinued them in October 2017 due to having reactions including tightness in chest which respond s to albuterol and redness around the site that subsides later. She also receive d IT shots for 3 years about 13 years ago which helped her a lot . Aeroallergen skin puncturetesting done on 05/12/2018 revealed she is sensitized to trees, we eds, grass, dust mite P and cat.Intradermal 05/2018 were positive to mold (alte rnaria and helminthosporium). She is doing well on Zyrtec 10mg QHS and Dymista 1 spray each nostril BID. She is on red vial 1:1 ( 3 shots) once a week. On , she received her first maintenance dose of 0.6. She has been toleratin g her allergy shots well. She puts ice [...] in morning in addition to her nightly d ose. She will place ice on the area for 30mins. Patient takes Epi pen (unexpired ) with her to every shot visit. - Continue Dymista 1 spray each nostril BID. - Saline rinses daily now while she is having congestion and Post nasal drip. I f her symptoms worsen, patient will call us to go over her it. May prescribe Aug mentin if need be. - Re-start Zaditor eye drops, one drop in each eye twice a day if needed. Moderate Persistent Asthma Without Complication Well controlled. Her triggers include URI, exertion, cold air exposure. On Symbicort 160/4.5 mcg 2 puffs BID since January 2018. Tried Qvar 80 mcg 2 puffs BID,with little improve ment. Last time using Albuterol was a month [...] goal is to stepdown her therapy if spi rometry is normal now that she is on AIT. Plan: -Continue Symbicort 160/4.5 mcg 2 puffs BID with spacer for the next 2 weeks whi le she is having congestion then patient may go back to Symbicort 160/4.5mcg 2 p uffs once daily. -Continue albuterol 2 puffs every 4 hours as needed for cough, shortness of jayant th and or wheezing. - Spirometry today was within normal limits. - May consider stepping down therapy at next visit if spirometry is normal and p atient's symptoms are well controlled. Especially since starting AIT. Follow-up in 6 months. Patient seen and discussed with Dr. Griffith and plan of care formulated. Junior Perdomo MD Allergy and Clinical Immunology Fellow documented in this encounter Plan of Treatment Not on filedocumented as of this encounter Procedures Comments Procedure Name Priority Date/Time Associated Diagnosis SPIROMETRY Routine 03/23/2019 History of asthma 11:26 AM CDT documented in this encounter Results * SPIROMETRY (03/23/2019 11:26 AM CDT) FVC-Pre 3.52 L [facility] FVC-%Pred-pre 81 % [facility] FEV1-Pre 2.93 L [facility] FEV1-%Pred-Pre 85 % [facility] FEV1/FVC-Pre 83 % [facility] [id number] 70 % [facility] [id number] 3.51 L/sec [facility] [id number]-%Pred-P 110 % [facility] re Narrative Performed At Performing Organization Address City/State/Zipcode Phone Number [facility] [address] [place] [address] documented in this encounter Visit Diagnoses Diagnosis History of asthma - Primary Personal history of other diseases of respiratory system Sinus pressure Other diseases of nasal cavity and sinuses Rhinoconjunctivitis Chronic rhinitis Moderate persistent asthma without complication Unspecified asthma documented in this encounter
[2019-03-26] MEDS ORDERED: ACET/BUTAL/CAFF (FIORICET) TAB PO PRN (17:45)
--- NOTE | 2019-03-26 17:48 | ED Headache ---
General Chief Complaint: Head/Cervical Problems Stated Complaint: HEADACHE Source: patient Exam Limitations: no limitations History of Present Illness Date Seen by Provider: March 26, 2019 Time Seen by Provider: 17:45 Initial Comments To ER with left-sided headache. She has a history of headaches intermittently but typically they're sinus type headaches and/or periorbital in location alleviated by decongestants. She denies any change in nasal congestion, rhinorr hea fevers or chills or vision. Starting this morning she had a dull ache on the left side of her head which is an unusual location for her headaches. This pain then spread behind the ear and down below the left ear. The infra-auricular and supraclavicular regions just adjacent to the ear are tender to palpation but normal in appearance. No injuries. The pain has become more intense, it is constant since this morning and sharp in nature. She does have nausea and photophobia. She denies any weakness on one side or another or other symptoms. Timing/Duration: other (headache) Severity/Quality: moderate Location: temporal Prior Headaches/Recent Trauma: occasional headaches Modifying Factors: worse with exposure to light Associated Symptoms: No confusion; facial pain; No fever/chills, No flushing; nausea/vomiting Allergies and Home Medications Allergies Coded Allergies: codeine (Unverified Allergy, Mild, RASH, CONSTIPATION, 11/23/13) Patient Home Medication List Home Medication List Reviewed: Yes Review of Systems Review of Systems Constitutional: see HPI Eyes: No Symptoms Reported Ears, Nose, Mouth, Throat: no symptoms reported Respiratory: no symptoms reported Cardiovascular: no symptoms reported Genitourinary: no symptoms reported Musculoskeletal: no symptoms reported Skin: no symptoms reported Psychiatric/Neurological: No Symptoms Reported Past Jdmiewy-Qxxqin-Vemdtp Hx Patient Social History Alcohol Use: Denies Use Recreational Drug Use: No Smoking Status: Never a Smoker Recent Foreign Travel: No Contact w/Someone Who Travel: No Recent Hopitalizations: No Physical Abuse: No Sexual Abuse: No Mistreated: No Fear: No Immunizations Up To Date Tetanus Booster (TDap): Less than 5yrs Date of Influenza Vaccine: Aug 27, 2013 Seasonal Allergies Seasonal Allergies: Yes Past Medical History Surgeries: No Respiratory: No Cardiac: No Neurological: No Reproductive Disorders: No Female Reproductive Disorders: Denies Sexually Transmitted Disease: No HIV/AIDS: No Genitourinary: No 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 oz. 76.729028kk; BMI Method:Stated General Appearance: WD/WN, no apparent distress HEENT: PERRL/EOMI, normal ENT inspection, TMs normal, other (tender to palpation just above and below the left ear for the skin appearance is normal without swelling or lesion.) Neck: non-tender, full range of motion; No lymphadenopathy (R), No lymphadenopathy (L) Respiratory: normal breath sounds, no respiratory distress, no accessory muscle use Extremities: normal range of motion, non-tender Psychiatric: alert, oriented x 3 Crainal Nerves: normal hearing, normal speech, PERRL Coordination/Gait: normal finger to nose, normal gait Motor/Sensory: no motor deficit, no sensory deficit, no pronator drift Skin: normal color, warm/dry Progress/Results/Core Measures Results/Orders My Orders Orders - SACHIN HORTON APRN Butalbital/Apap/Caffeine Tab (Fioricet T (03/26/19 17:45) Ct Head Wo (03/26/19 17:44) Vital Signs/I&O 03/26/19 17:37 Temp 98.2 Pulse 76 Resp 18 B/P (MAP) 132/75 (94) Pulse Ox 98 Departure Communication (Admissions) 1836-currently her headache is 4 out of 10, was 8 out of 10 on arrival. This is after one Fioricet tablet. Impression Primary Impression: Headache Qualified Codes: R51 - Headache Disposition: 01 HOME, SELF-CARE Condition: Stable Departure-Patient Inst. Decision time for Depature: 18:36 Referrals: KAMALJIT GARRIDO MD (PCP/Family) Primary Care Physician Patient Instructions: Headache, Adult (DC) Add. Discharge Instructions: 1. Return to ER for any worsening symptoms, uncontrollable nausea or worsening headache. All discharge instructions reviewed with patient and/or family. Voiced understanding. Scripts Butalb/Acetaminophen/Caffeine (Ljizop-Xjuhamlc-Rgqq [id number]) 1 Each Capsule 1 EACH PO Q4H PRN for HEADACHE, #10 CAP Prov: SACHIN HORTON APRN 03/26/19 SACHIN HORTON APRN March 26, 2019 17:48
--- NOTE | 2019-03-26 18:20 | Diagnostic Imaging Report ---
PROCEDURE: CT head without contrast. TECHNIQUE: Multiple contiguous axial images were obtained through the brain without the use of intravenous contrast. Auto Exposure Controls were utilized during the CT exam to meet ALARA standards for radiation dose reduction. INDICATION: Headache. COMPARISON: Prior examination from 11/29/2013. FINDINGS: The ventricles and sulci are within normal limits. There is no hydrocephalus or cerebral edema. There is no midline shift or mass effect. There is no intracranial mass, hemorrhage, or extra-axial fluid collection. The visualized paranasal sinuses and mastoid air cells are clear. There are no regional areas of decreased attenuation appreciated to suggest an acute CVA. IMPRESSION: No acute intracranial abnormality. Dictated by: Dictated on workstation # [id number]
[2019-03-26] MEDS ORDERED: BUTA1CAP41 PO (18:37)
[2019-03-26 18:45] VITALS: BP 123/70
== END 2019-03-26 18:45 | disposition home or self-care (01) ==
LOC: EDUNIT# 17:23 → ER 17:25
DX: R51 Headache (principal); Z88.5 Allergy status to narcotic agent
CPT/HCPCS: 70450

== ENCOUNTER → 2019-06-26 | Outpatient (CLI) | payer BC ==
[~2019-06-26] MED LIST changes: +BUTA1CAP41 PO
--- NOTE | 2019-06-26 11:11 | Diagnostic Imaging Report ---
INDICATION: Routine screening. COMPARISON: 11/18/2016 and 03/23/2013. TECHNIQUE: 2D and 3D bilateral screening mammography was performed with CAD. FINDINGS: Both breasts remain heterogeneously dense, limiting the sensitivity of mammography. Scattered benign calcifications are noted bilaterally. A stable benign nodule in the axillary tail on the left is seen. No new mass or malignant appearing microcalcifications are identified. The axillae are unremarkable. IMPRESSION: No mammographic features suspicious for malignancy are identified. ACR BI-RADS Category 2: Benign findings. Result letter will be mailed to the patient. Note: At least 10% of breast cancer is not imaged by mammography. Dictated by: Dictated on workstation # [id number]
--- NOTE | 2019-06-26 11:26 | Diagnostic Imaging Report ---
PROCEDURE: US Non-ob pelvis comp/trans. TECHNIQUE: Multiple Real-time grayscale images were obtained of the pelvis in various projections endovaginally. Transabdominal imaging was also performed. INDICATION: Uterine enlargement. Patient has family history of fibroids. FINDINGS: The uterus measures 4.2 x 4.6 x 5.9 cm. The endometrium is 3 mm in thickness. No myometrial mass is detected. The ovaries are not visualized due to overlying bowel gas. No adnexal mass or free fluid is seen. IMPRESSION: Unremarkable pelvic ultrasound. Dictated by: Dictated on workstation # [id number]
== END ==
LOC: RAD 09:22
PROVIDERS: ATTEND Obstetrics & Gynecology
DX: Z12.31 Encounter for screening mammogram for malignant neoplasm of breast (principal); N85.2 Hypertrophy of uterus; N92.1 Excessive and frequent menstruation with irregular cycle; Z84.89 Family history of other specified conditions
CPT/HCPCS: 76830; 76856; 77067

== ENCOUNTER → 2021-07-25 | Outpatient (CLI) | payer BC | LOC: LAB 08:00 | PROVIDERS: ATTEND Family Medicine | DX: D72.829 Elevated white blood cell count, unspecified (principal); M19.90 Unspecified osteoarthritis, unspecified site | CPT/HCPCS: 36415; 80061; 84443 ==

== ENCOUNTER 2021-09-26 07:20 | Outpatient (RCR) | payer BC ==
[2021-07-25 08:29] LABS: BASOPHILS % (AUTO) 0 % (0-10); EOSINOPHILS # (AUTO) 0.1 10^3/uL (0.0-0.3); EOSINOPHILS % (AUTO) 3 % (0-10); HEMATOCRIT 39 % (35-52); HEMOGLOBIN 12.3 g/dL (11.5-16.0); LYMPHOCYTES # (AUTO) 1.3 10^3/uL (1.0-4.0); LYMPHOCYTES % (AUTO) 25 % (12-44); MEAN CORPUSCULAR HEMOGLOBIN 29 pg (25-34); MEAN CORPUSCULAR HGB CONC 32 g/dL (32-36); MEAN CORPUSCULAR VOLUME 92 fL (80-99); MEAN PLATELET VOLUME 8.9 fL (9.0-12.2); MONOCYTES # (AUTO) 0.5 10^3/uL (0.0-1.0); MONOCYTES % (AUTO) 9 % (0-12); NEUTROPHILS # (AUTO) 3.3 10^3/uL (1.8-7.8); NEUTROPHILS % (AUTO) 63 % (42-75); PLATELET COUNT 337 10^3/uL (130-400); WHITE BLOOD COUNT 5.3 10^3/uL (4.3-11.0)
[2021-07-25 08:41] LABS: ALBUMIN 3.8 GM/DL (3.2-4.5)
[2021-07-25 08:42] LABS: CALCIUM 9.1 MG/DL (8.5-10.1)
[2021-07-25 08:43] LABS: TOTAL PROTEIN 6.5 GM/DL (6.4-8.2)
[2021-07-25 08:45] LABS: BILIRUBIN,TOTAL 0.5 MG/DL (0.1-1.0)
[2021-07-25 08:47] LABS: CREATININE SERUM 0.8 MG/DL (0.60-1.30)
[2021-08-29 08:07] LABS: BASOPHILS % (AUTO) 1 % (0-10); EOSINOPHILS # (AUTO) 0.1 10^3/uL (0.0-0.3); EOSINOPHILS % (AUTO) 2 % (0-10); HEMATOCRIT 38 % (35-52); HEMOGLOBIN 12.7 g/dL (11.5-16.0); LYMPHOCYTES # (AUTO) 1.4 10^3/uL (1.0-4.0); LYMPHOCYTES % (AUTO) 24 % (12-44); MEAN CORPUSCULAR HEMOGLOBIN 30 pg (25-34); MEAN CORPUSCULAR HGB CONC 33 g/dL (32-36); MEAN CORPUSCULAR VOLUME 91 fL (80-99); MEAN PLATELET VOLUME 9.8 fL (9.0-12.2); MONOCYTES # (AUTO) 0.6 10^3/uL (0.0-1.0); MONOCYTES % (AUTO) 10 % (0-12); NEUTROPHILS # (AUTO) 3.7 10^3/uL (1.8-7.8); NEUTROPHILS % (AUTO) 63 % (42-75); PLATELET COUNT 367 10^3/uL (130-400); WHITE BLOOD COUNT 5.9 10^3/uL (4.3-11.0)
[2021-08-29 08:29] LABS: ALBUMIN 4.1 GM/DL (3.2-4.5); BILIRUBIN,TOTAL 0.6 MG/DL (0.1-1.0); CALCIUM 9.6 MG/DL (8.5-10.1); CREATININE SERUM 0.83 MG/DL (0.60-1.30); POTASSIUM 3.9 MMOL/L (3.6-5.0); TOTAL PROTEIN 6.9 GM/DL (6.4-8.2)
[2021-09-26 07:29] LABS: BASOPHILS % (AUTO) 1 % (0-10); EOSINOPHILS # (AUTO) 0.1 10^3/uL (0.0-0.3); EOSINOPHILS % (AUTO) 2 % (0-10); HEMATOCRIT 38 % (35-52); HEMOGLOBIN 12.5 g/dL (11.5-16.0); LYMPHOCYTES # (AUTO) 1.3 10^3/uL (1.0-4.0); LYMPHOCYTES % (AUTO) 23 % (12-44); MEAN CORPUSCULAR HEMOGLOBIN 31 pg (25-34); MEAN CORPUSCULAR HGB CONC 33 g/dL (32-36); MEAN CORPUSCULAR VOLUME 94 fL (80-99); MEAN PLATELET VOLUME 9.5 fL (9.0-12.2); MONOCYTES # (AUTO) 0.6 10^3/uL (0.0-1.0); MONOCYTES % (AUTO) 11 % (0-12); NEUTROPHILS # (AUTO) 3.6 10^3/uL (1.8-7.8); NEUTROPHILS % (AUTO) 64 % (42-75); PLATELET COUNT 363 10^3/uL (130-400); WHITE BLOOD COUNT 5.6 10^3/uL (4.3-11.0)
[2021-09-26 07:58] LABS: ALBUMIN 3.9 GM/DL (3.2-4.5); BILIRUBIN,TOTAL 0.7 MG/DL (0.1-1.0); CALCIUM 8.9 MG/DL (8.5-10.1); CREATININE SERUM 0.76 MG/DL (0.60-1.30); POTASSIUM 3.7 MMOL/L (3.6-5.0); TOTAL PROTEIN 6.8 GM/DL (6.4-8.2)
== END 2021-10-23 | disposition home or self-care (01) ==
LOC: LAB 07:20
PROVIDERS: ATTEND Internal Medicine Rheumatology
DX: Z51.81 Encounter for therapeutic drug level monitoring (principal); Z79.899 Other long term (current) drug therapy
CPT/HCPCS: 36415; 80053; 85025

== ENCOUNTER → 2021-11-03 | Outpatient (CLI) | payer BC ==
[2021-11-03 07:57] LABS: BASOPHILS % (AUTO) 1 % (0-10); EOSINOPHILS # (AUTO) 0.3 10^3/uL (0.0-0.3); EOSINOPHILS % (AUTO) 4 % (0-10); HEMATOCRIT 41 % (35-52); HEMOGLOBIN 13.3 g/dL (11.5-16.0); LYMPHOCYTES # (AUTO) 1.5 10^3/uL (1.0-4.0); LYMPHOCYTES % (AUTO) 23 % (12-44); MEAN CORPUSCULAR HEMOGLOBIN 31 pg (25-34); MEAN CORPUSCULAR HGB CONC 32 g/dL (32-36); MEAN CORPUSCULAR VOLUME 94 fL (80-99); MEAN PLATELET VOLUME 9.4 fL (9.0-12.2); MONOCYTES # (AUTO) 0.6 10^3/uL (0.0-1.0); MONOCYTES % (AUTO) 10 % (0-12); NEUTROPHILS % (AUTO) 62 % (42-75); PLATELET COUNT 354 10^3/uL (130-400); WHITE BLOOD COUNT 6.4 10^3/uL (4.3-11.0)
[2021-11-03 08:14] LABS: ALBUMIN 4.1 GM/DL (3.2-4.5); BILIRUBIN,TOTAL 0.3 MG/DL (0.1-1.0); CALCIUM 9.3 MG/DL (8.5-10.1); CREATININE SERUM 0.81 MG/DL (0.60-1.30); POTASSIUM 4.3 MMOL/L (3.6-5.0); TOTAL PROTEIN 7.2 GM/DL (6.4-8.2)
== END ==
LOC: LAB 07:25
PROVIDERS: ATTEND Internal Medicine Rheumatology
DX: Z79.899 Other long term (current) drug therapy (principal)
CPT/HCPCS: 36415; 80053; 85025

== ENCOUNTER → 2021-12-08 | Outpatient (RCR) | payer BC ==
[2021-12-08 08:37] LABS: BASOPHILS # (AUTO) 0.1 10^3/uL (0.0-0.1); BASOPHILS % (AUTO) 1 % (0-10); EOSINOPHILS # (AUTO) 0.1 10^3/uL (0.0-0.3); EOSINOPHILS % (AUTO) 2 % (0-10); HEMATOCRIT 39 % (35-52); HEMOGLOBIN 12.7 g/dL (11.5-16.0); LYMPHOCYTES # (AUTO) 1.4 10^3/uL (1.0-4.0); LYMPHOCYTES % (AUTO) 27 % (12-44); MEAN CORPUSCULAR HEMOGLOBIN 30 pg (25-34); MEAN CORPUSCULAR HGB CONC 32 g/dL (32-36); MEAN CORPUSCULAR VOLUME 92 fL (80-99); MEAN PLATELET VOLUME 9.5 fL (9.0-12.2); MONOCYTES # (AUTO) 0.5 10^3/uL (0.0-1.0); MONOCYTES % (AUTO) 10 % (0-12); NEUTROPHILS # (AUTO) 3.1 10^3/uL (1.8-7.8); NEUTROPHILS % (AUTO) 59 % (42-75); PLATELET COUNT 394 10^3/uL (130-400); WHITE BLOOD COUNT 5.3 10^3/uL (4.3-11.0)
[2021-12-08 08:54] LABS: ALBUMIN 4.1 GM/DL (3.2-4.5); BILIRUBIN,TOTAL 0.9 MG/DL (0.1-1.0); CALCIUM 9.2 MG/DL (8.5-10.1); CREATININE SERUM 0.77 MG/DL (0.60-1.30); POTASSIUM 3.8 MMOL/L (3.6-5.0); TOTAL PROTEIN 7.2 GM/DL (6.4-8.2)
== END | disposition home or self-care (01) ==
LOC: LAB 08:06
PROVIDERS: ATTEND Internal Medicine Rheumatology
DX: Z51.81 Encounter for therapeutic drug level monitoring (principal); Z79.899 Other long term (current) drug therapy
CPT/HCPCS: 36415; 80053; 85025

== ENCOUNTER → 2022-01-08 | Outpatient (CLI) | payer BC ==
[2022-01-08 08:19] LABS: BASOPHILS % (AUTO) 1 % (0-10); EOSINOPHILS # (AUTO) 0.1 10^3/uL (0.0-0.3); EOSINOPHILS % (AUTO) 2 % (0-10); HEMATOCRIT 39 % (35-52); HEMOGLOBIN 12.6 g/dL (11.5-16.0); LYMPHOCYTES # (AUTO) 1.2 10^3/uL (1.0-4.0); LYMPHOCYTES % (AUTO) 25 % (12-44); MEAN CORPUSCULAR HEMOGLOBIN 30 pg (25-34); MEAN CORPUSCULAR HGB CONC 33 g/dL (32-36); MEAN CORPUSCULAR VOLUME 93 fL (80-99); MEAN PLATELET VOLUME 9.5 fL (9.0-12.2); MONOCYTES # (AUTO) 0.4 10^3/uL (0.0-1.0); MONOCYTES % (AUTO) 7 % (0-12); NEUTROPHILS # (AUTO) 3.3 10^3/uL (1.8-7.8); NEUTROPHILS % (AUTO) 65 % (42-75); PLATELET COUNT 392 10^3/uL (130-400); WHITE BLOOD COUNT 5.1 10^3/uL (4.3-11.0)
[2022-01-08 08:35] LABS: ALBUMIN 4.1 GM/DL (3.2-4.5); BILIRUBIN,TOTAL 0.8 MG/DL (0.1-1.0); CALCIUM 9.2 MG/DL (8.5-10.1); CREATININE SERUM 0.79 MG/DL (0.60-1.30); POTASSIUM 3.8 MMOL/L (3.6-5.0); TOTAL PROTEIN 6.9 GM/DL (6.4-8.2)
== END ==
LOC: LAB 07:49
PROVIDERS: ATTEND Internal Medicine Rheumatology
DX: Z79.899 Other long term (current) drug therapy (principal)
CPT/HCPCS: 36415; 80053; 85025

== ENCOUNTER → 2022-01-19 | Outpatient (CLI) | payer BC ==
[2022-01-19 09:28] LABS: ALBUMIN 4.2 GM/DL (3.2-4.5); BILIRUBIN,DIRECT 0.3 MG/DL (0.0-0.3); BILIRUBIN,INDIRECT 0.4 MG/DL; BILIRUBIN,TOTAL 0.7 MG/DL (0.1-1.0); TOTAL PROTEIN 6.8 GM/DL (6.4-8.2)
== END ==
LOC: LAB 08:47
PROVIDERS: ATTEND Internal Medicine Rheumatology
DX: R94.5 Abnormal results of liver function studies (principal)
CPT/HCPCS: 36415; 80076

== ENCOUNTER → 2022-02-20 | Outpatient (CLI) | payer BC ==
[2022-02-20 08:48] LABS: ALBUMIN 4.3 GM/DL (3.2-4.5); BILIRUBIN,DIRECT 0.2 MG/DL (0.0-0.3); BILIRUBIN,INDIRECT 0.5 MG/DL; BILIRUBIN,TOTAL 0.7 MG/DL (0.1-1.0); TOTAL PROTEIN 7.2 GM/DL (6.4-8.2)
== END ==
LOC: LAB 08:06
PROVIDERS: ATTEND Internal Medicine Rheumatology
DX: R79.89 Other specified abnormal findings of blood chemistry (principal)
CPT/HCPCS: 36415; 80076

== ENCOUNTER → 2022-03-30 | Outpatient (CLI) | payer BC ==
[2022-03-30 07:15] LABS: BASOPHILS % (AUTO) 1 % (0-10); EOSINOPHILS # (AUTO) 0.2 10^3/uL (0.0-0.3); EOSINOPHILS % (AUTO) 3 % (0-10); HEMATOCRIT 38 % (35-52); HEMOGLOBIN 12.5 g/dL (11.5-16.0); LYMPHOCYTES # (AUTO) 1.6 10^3/uL (1.0-4.0); LYMPHOCYTES % (AUTO) 24 % (12-44); MEAN CORPUSCULAR HEMOGLOBIN 31 pg (25-34); MEAN CORPUSCULAR HGB CONC 33 g/dL (32-36); MEAN CORPUSCULAR VOLUME 92 fL (80-99); MEAN PLATELET VOLUME 9.5 fL (9.0-12.2); MONOCYTES # (AUTO) 0.7 10^3/uL (0.0-1.0); MONOCYTES % (AUTO) 11 % (0-12); NEUTROPHILS # (AUTO) 4.2 10^3/uL (1.8-7.8); NEUTROPHILS % (AUTO) 62 % (42-75); PLATELET COUNT 370 10^3/uL (130-400); WHITE BLOOD COUNT 6.7 10^3/uL (4.3-11.0)
[2022-03-30 07:24] LABS: BILIRUBIN,TOTAL 0.7 MG/DL (0.1-1.0); CALCIUM 9.2 MG/DL (8.5-10.1); CREATININE SERUM 0.79 MG/DL (0.60-1.30); POTASSIUM 3.7 MMOL/L (3.6-5.0); TOTAL PROTEIN 6.7 GM/DL (6.4-8.2)
== END ==
LOC: LAB 06:44
PROVIDERS: ATTEND Internal Medicine Rheumatology
DX: Z79.899 Other long term (current) drug therapy (principal)
CPT/HCPCS: 36415; 80053; 85025

== ENCOUNTER → 2022-05-01 | Outpatient (CLI) | payer BC ==
[2022-05-01 07:02] LABS: BASOPHILS # (AUTO) 0.1 10^3/uL (0.0-0.1); BASOPHILS % (AUTO) 1 % (0-10); EOSINOPHILS # (AUTO) 0.1 10^3/uL (0.0-0.3); EOSINOPHILS % (AUTO) 3 % (0-10); HEMATOCRIT 41 % (35-52); HEMOGLOBIN 13.1 g/dL (11.5-16.0); LYMPHOCYTES # (AUTO) 1.5 10^3/uL (1.0-4.0); LYMPHOCYTES % (AUTO) 28 % (12-44); MEAN CORPUSCULAR HEMOGLOBIN 31 pg (25-34); MEAN CORPUSCULAR HGB CONC 32 g/dL (32-36); MEAN CORPUSCULAR VOLUME 94 fL (80-99); MEAN PLATELET VOLUME 9.4 fL (9.0-12.2); MONOCYTES # (AUTO) 0.8 10^3/uL (0.0-1.0); MONOCYTES % (AUTO) 14 % (0-12); NEUTROPHILS % (AUTO) 55 % (42-75); PLATELET COUNT 366 10^3/uL (130-400); WHITE BLOOD COUNT 5.5 10^3/uL (4.3-11.0)
[2022-05-01 07:10] LABS: ALBUMIN 4.1 GM/DL (3.2-4.5); POTASSIUM 4.2 MMOL/L (3.6-5.0)
[2022-05-01 07:11] LABS: CALCIUM 9.3 MG/DL (8.5-10.1)
[2022-05-01 07:12] LABS: TOTAL PROTEIN 7.1 GM/DL (6.4-8.2)
[2022-05-01 07:14] LABS: BILIRUBIN,TOTAL 0.6 MG/DL (0.1-1.0)
[2022-05-01 07:16] LABS: CREATININE SERUM 0.8 MG/DL (0.60-1.30)
[2022-05-01 07:17] LABS: BILIRUBIN,DIRECT 0.2 MG/DL (0.0-0.3); BILIRUBIN,INDIRECT 0.4 MG/DL
== END ==
LOC: LAB 06:38
PROVIDERS: ATTEND Internal Medicine Rheumatology
DX: R79.89 Other specified abnormal findings of blood chemistry (principal); Z79.899 Other long term (current) drug therapy
CPT/HCPCS: 36415; 80053; 80076; 85025

== ENCOUNTER → 2022-11-13 | Outpatient (CLI) | payer BC ==
--- NOTE | 2022-11-13 12:05 | Diagnostic Imaging Report ---
INDICATION: Routine screening. Comparison is made prior mammogram of 06/26/2019 and 11/18/2016. 2-D and 3-D bilateral screening mammography was performed with CAD Both breasts are heterogeneously dense, limiting the sensitivity of mammography. The parenchymal pattern is stable. There are benign calcifications bilaterally. Benign nodule in the upper left breast is stable. No new mass or malignant-appearing microcalcifications are seen. Axillae are unremarkable. IMPRESSION: No mammographic features suspicious for malignancy are identified. ACR BI-RADS Category 2: Benign findings. Result letter will be mailed to the patient. Note: At least 10% of breast cancer is not imaged by mammography. BI-RADS Category 2 Dictated by: Dictated on workstation # [id number]
== END ==
LOC: RAD 07:35
PROVIDERS: ATTEND Surgery
DX: Z12.31 Encounter for screening mammogram for malignant neoplasm of breast (principal)
CPT/HCPCS: 77063; 77067

== ENCOUNTER 2023-02-03 05:33 | Outpatient (CLI) | payer BC ==
[~2023-02-03] VITALS: Ht 177.8 cm; Wt 84.6 kg
[2023-02-03] MEDS ORDERED: AZEL23SP2 NS (09:33)
[2023-02-03] MEDS ORDERED: RT-ALBUINH INH (09:33)
[2023-02-03] MEDS ORDERED: ASHW500C PO (09:33)
[2023-02-03] MEDS ORDERED: FOLI1TAB33 PO (09:33)
[2023-02-03] MEDS ORDERED: ASCO500T17 PO (09:33)
[2023-02-03] MEDS ORDERED: BUDE10.26 IH (09:33)
[2023-02-03] MEDS ORDERED: CETI10TA17 PO (09:33)
[2023-02-03] MEDS ORDERED: BUDE10.2 IH (09:33)
[2023-02-03] MEDS ORDERED: METH2.5T PO (09:33)
[2023-02-03] MEDS ORDERED: MULT-593 PO (09:33)
== END 2023-02-03 09:37 | disposition home or self-care (01) ==
LOC: PREOP 05:33
PROVIDERS: ATTEND Surgery
DX: Z01.818 Encounter for other preprocedural examination (principal)

== ENCOUNTER 2023-02-16 06:57 | Day surgery (SDC) | payer BC ==
[~2023-02-16] VITALS: Ht 177.8 cm; Wt 84.6 kg
[~2023-02-16 06:57] MED LIST changes: +ASCO500T17 PO; +ASHW500C PO; +AZEL23SP2 NS; +BUDE10.2 IH; +BUDE10.26 IH; +CETI10TA17 PO; +FOLI1TAB33 PO; +METH2.5T PO; +MULT-593 PO; +RT-ALBUINH INH
[2023-02-16] MEDS ORDERED: LACTATED RINGERS 1,000 ML IV STA (07:07)
[2023-02-16 07:20] VITALS: BP 110/73
[2023-02-16] MEDS ORDERED: PROPOFOL INJECTION 50 ML IV ONE (07:48)
[2023-02-16 08:40] VITALS: BP 98/52
--- NOTE | 2023-02-16 08:40 | Progress Note-Post Operative ---
Post-Operative Progess Note Surgeon (s)/Scallop Dredger (s) Surgeon VICK GOOD DO Scallop Dredger: n/a Pre-Operative Diagnosis screening Post-Operative Diagnosis normal colon Procedure & Operative Findings Date of Procedure 02/16/23 Procedure Performed/Findings colonoscopy Anesthesia Type per wireless consultant Estimated Blood Loss Estimated blood loss (mL): none Specimens/Packing Specimens Removed none VICK GOOD DO Feb 16, 2023 08:40
--- NOTE | 2023-02-16 08:41 | Discharge Inst-Simple/Standard ---
Discharge Inst-Standard Reconcile Patient Problems Problems Reviewed?: Yes Patient Instructions/Follow Up Plan of Care/Instructions/FU: Repeat colonoscopy in 10 years, 5 years if family hx colon cancer. Seen sooner if any issues before then. Activity as Tolerated: Yes Discharge Diet: No Restrictions, Regular Diet VICK GOOD DO Feb 16, 2023 08:41
--- NOTE | 2023-02-16 08:41 | Anesthesia-General Post-Op ---
MAC Patient Condition Mental Status/LOC: Same as Preop Cardiovascular: Satisfactory Nausea/Vomiting: Absent Respiratory: Satisfactory Pain: Controlled Complications: Absent Post Op Complications Complications None Follow Up Care/Instructions Patient Instructions None needed. Anesthesiology Discharge Order Discharge Order Patient is doing well, no complaints, stable vital signs, no apparent adverse anesthesia problems. No complications reported per nursing. AMARILIS MARTIN CRNA Feb 16, 2023 08:40
[2023-02-16 09:04] VITALS: BP 98/52
--- NOTE | 2023-02-16 13:15 | OPERATIVE REPORT ---
DATE OF SERVICE: 02/16/2023 PREOPERATIVE DIAGNOSIS: Screening colonoscopy. POSTOPERATIVE DIAGNOSIS: Normal colon. PROCEDURE: Colonoscopy. SURGEON: Vick Barber DO ANESTHESIA: Per SALES ROUTE DRIVER HELPER. ESTIMATED BLOOD LOSS: None. COMPLICATIONS: None. INDICATIONS: The patient is a 52-year-old female, needing screening colonoscopy. She understands risks and benefits of procedure and wished to proceed. Consent was signed in chart. DESCRIPTION OF PROCEDURE: The patient was taken to endoscopy suite, placed in left lateral recumbent position. Timeout was performed. Digital rectal exam was performed. No palpable polyps, masses or ulcerations. Scope was inserted in the rectum, advanced all the way to the cecum with minimal difficulty. Prep was adequate. Scope was slowly retracted back. No polyps, masses or ulcerations within the cecum, ascending, transverse, descending and sigmoid colon. Once in the rectum, scope was retroflexed noting no other pathology. Scope was returned to its normal position, slowly withdrawn until completely removed. The patient tolerated the procedure well without complications, taken to recovery room in stable condition. RECOMMENDATIONS: The patient will need repeat colonoscopy in 10 years unless family history of colon cancer, which was then be 5 years. Any issues before that, be seen at that time. Job ID: [id number] DocumentID: [id number] Dictated Date: 02/16/2023 08:41:18 Geriatric Assistant Date: 02/16/2023 13:14:00 Dictated By: VICK BARBER DO
== END 2023-02-16 09:12 | disposition home or self-care (01) ==
LOC: ENDO 06:57
PROVIDERS: ATTEND Surgery
DX: Z12.11 Encounter for screening for malignant neoplasm of colon (principal)